=== PATIENT | male | born 1950 | race Caucasian/White ===

== ENCOUNTER 2017-12-25 14:00 | Emergency (ER) | payer MEDICARE, OTHER ==
[2017-12-25 14:01] VITALS: BMI 28.1
[2017-12-25 14:15] VITALS: O2SAT 100
[2017-12-25] MEDS ORDERED: DiphenhydrAMINE 50 mg/ml Inj IVP STA (14:54)
[2017-12-25] MEDS ORDERED: DiphenhydrAMINE 50 mg/ml Inj ONE (15:16)
--- NOTE | 2017-12-25 15:22 | ED PDOC ---
HPI: Skin/Bite Injury Time Seen by Provider: 12/25/17 14:00 Chief Complaint (Nursing): Abnormal Skin Integrity Chief Complaint (Provider): Rash History Per: Patient History/Exam Limitations: no limitations Onset/Duration Of Symptoms: Days (x1) Current Symptoms Are (Timing): Still Present Location Of Injury: Right: Hand, Left: Hand, Anterior: Chest, Face, Posterior: Back, Neck Quality Of Symptoms: Itching Additional Complaint(s): Dakota Patterson is a 67 year old male, with no significant past medical history, who presents to the emergency department complaining of a diffused itchy rash and swollen lips onset for x1 day. Rash is most prominently on the back of the neck , lower back, hands, face, and chest. Patient denies new medications, lotions or detergents. No known allergies. He denies any fever, chills, vomiting or other medical complaints. PMD: Tristen Love Past Medical History Reviewed: Historical Data, Nursing Documentation, Vital Signs Vital Signs: Last Vital Signs Temp 98.3 F 12/25/17 18:51 Pulse 85 12/25/17 18:51 Resp 18 12/25/17 18:51 BP 132/74 12/25/17 18:51 Pulse Ox 100 12/25/17 19:06 - Medical History PMH: Arthritis, Benign Prostatic Hyperplasia, HTN, Hypercholesterolemia Denies: Chronic Kidney Disease - Surgical History Surgical History: No Surg Hx - Family History Family History: States: Unknown Family Hx - Social History Current smoker - smoking cessation education provided: No Alcohol: None Drugs: Denies - Immunization History Hx Tetanus Toxoid Vaccination: No Hx Influenza Vaccination: No Hx Pneumococcal Vaccination: No - Home Medications Home Medications: Ambulatory Orders Medication Instructions Recorded Allopurinol [Zyloprim] 300 mg PO DAILY 11/15/13 Celecoxib [Celebrex] 200 mg PO DAILY 11/15/13 Metoprolol Tartrate 50 mg PO DAILY 11/15/13 Tamsulosin [Flomax] 1 cap PO DAILY 11/15/13 Amlodipine/Atorvastatin 1 tab PO DAILY 07/02/16 [Amlodipine Besylate/Atorvastatin Calcium 10 M] Finasteride [Proscar] 5 mg PO DAILY 07/02/16 Latanoprost 0.005% Opht [Xalatan 1 % EACHEYE DAILY 07/02/16 Opht] Triamterene/Hydrochlorothiazid 1 tab PO DAILY 07/02/16 [Triamterene-Hydrochlorothiazide 25 mg-37.5 mg] DiphenhydrAMINE [Benadryl] 25 mg PO Q6H PRN #10 cap 12/25/17 Famotidine [Pepcid] 20 mg PO BID #10 tab 12/25/17 predniSONE [Prednisone] 40 mg PO DAILY #8 tab 12/25/17 - Allergies Allergies/Adverse Reactions: Allergies Allergy/AdvReac Type Severity Reaction Status Date / Time No Known Allergies Allergy Verified 12/25/17 14:11 Review of Systems ROS Statement: Except As Marked, All Systems Reviewed And Found Negative Constitutional: Negative for: Fever, Chills ENT: Positive for: Mouth Swelling (swollen lips. ) Gastrointestinal: Negative for: Vomiting Skin: Positive for: Rash (itchy rash to posterior neck, lower back, hands, face and chest. ) Physical Exam - Reviewed Nursing Documentation Reviewed: Yes Vital Signs Reviewed: Yes - Physical Exam Appears: Positive for: Non-toxic, No Acute Distress Head Exam: Positive for: ATRAUMATIC, NORMAL INSPECTION, NORMOCEPHALIC Skin: Positive for: Normal Color, Warm, Dry, Rash (diffused urticaria ) Eye Exam: Positive for: Normal appearance, EOMI, PERRL ENT: Positive for: Other (lips swollen but oropharynx is clear. No angioedema) Neck: Positive for: Painless ROM, Supple Cardiovascular/Chest: Positive for: Regular Rate, Rhythm. Negative for: Murmur Respiratory: Positive for: Normal Breath Sounds (clear b/l). Negative for: Respiratory Distress Gastrointestinal/Abdominal: Positive for: Normal Exam, Soft. Negative for: Tenderness, Guarding, Rebound Back: Positive for: Normal Inspection. Negative for: L CVA Tenderness, R CVA Tenderness, Vertebral Tenderness Extremity: Positive for: Normal ROM. Negative for: Tenderness, Deformity, Swelling Neurologic/Psych: Positive for: Alert, Oriented - ECG O2 Sat by Pulse Oximetry: 100 (RA) Pulse Ox Interpretation: Normal Medical Decision Making Medical Decision Making: Initial Impression: Allergic reaction, unknown trigger. no respiratory symptoms at this time. Initial Plan: --Benadryl 50 mg IVP --Pepcid 20 mg IVP --SOLU-medrol 125 mg IVP --Reevaluation Time: 18:42 Upon provider reevaluation patient is feeling improved and swelling has reduced. pt feels fine, no dyspea or tachypnea. Patient will be discharged with Rx for Prednisone, Pepcid, and Benadryl. Counseling was provided and all questions were answered regarding diagnosis and need for follow up with [employer]. Patient was instructed very clearly to return to the ED immediately if any symptoms recur. There is agreement to discharge plan. Scribe Attestation: Documented by Fei Buck and Raj Stovall, acting as scribes for Pauly Sloan MD Provider Scribe Attestation: All medical record entries made by the Scribe were at my direction and personally dictated by me. I have reviewed the chart and agree that the record accurately reflects my personal performance of the history, physical exam, medical decision making, and the department course for this patient. I have also personally directed, reviewed, and agree with the discharge instructions and disposition. Disposition - Clinical Impression Clinical Impression: Allergic reaction - Patient ED Disposition Is Patient to be Admitted: No Counseled Patient/Family Regarding: Diagnosis, Need For Followup, Rx Given - Disposition Disposition: Routine/Home Disposition Time: 18:00 Condition: IMPROVED Additional Instructions: follow up with the ore miner Dr Bowers [phone] return to the ED with any worsening or concerning symptoms Prescriptions: DiphenhydrAMINE [Benadryl] 25 mg PO Q6H PRN #10 cap PRN Reason: Rash Famotidine [Pepcid] 20 mg PO BID #10 tab predniSONE [Prednisone] 40 mg PO DAILY #8 tab Forms: [employer] (Armenian)
[2017-12-25 18:52] VITALS: BP 132/74; PULSE 85; RESP 18; TEMP 98.3
== END 2017-12-25 18:53 | disposition home or self-care (01) ==
LOC: H.ER 14:00
DX: T78.40XA Allergy, unspecified, initial encounter (principal); E78.00 Pure hypercholesterolemia, unspecified; I10 Essential (primary) hypertension; N40.0 Benign prostatic hyperplasia without lower urinary tract symptoms
CPT/HCPCS: 96374; 96375; 99282; J1200; J2930

== ENCOUNTER 2018-11-11 15:35 | Emergency (ER) | payer OTHER ==
[2018-11-11 15:35] VITALS: BMI 28.1
[2018-11-11 15:46] VITALS: BP 148/83; PULSE 56; RESP 20; TEMP 97.9; O2SAT 97
--- NOTE | 2018-11-11 16:49 | ED PDOC ---
Upper Extremity Pain/Injury Time Seen by Provider: 11/11/18 16:41 Chief Complaint (Nursing): Upper Extremity Problem/Injury Chief Complaint (Provider): Upper Extremity Problem/Injury History Per: Patient History/Exam Limitations: no limitations Onset/Duration Of Symptoms: Hrs Current Symptoms Are (Timing): Still Present Additional Complaint(s): Patient is a 68 y/o male with a PMHx of HTN, arthritis, and benign prostatic hyperplasia who presents to the ED for evaluation of right shoulder pain, onset earlier today. Patient claims he was filling a pot with water when he felt a sharp pain in his right shoulder. Patient reports the pain hurts sometimes when he moves his arm, however, one time he was sitting still when he started experiencing the pain again. 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 PCP: Dr. Tristen Love Past Medical History Reviewed: Historical Data, Nursing Documentation, Vital Signs Vital Signs: Last Vital Signs Temp 97.9 F 11/11/18 15:42 Pulse 56 L 11/11/18 15:42 Resp 20 11/11/18 15:42 BP 148/83 11/11/18 15:42 Pulse Ox 97 11/11/18 15:42 - Medical History PMH: Arthritis, Benign Prostatic Hyperplasia, HTN Denies: Hypercholesterolemia, Chronic Kidney Disease - Surgical History Surgical History: No Surg Hx - Family History Family History: States: Unknown Family Hx - Immunization History Hx Tetanus Toxoid Vaccination: No Hx Influenza Vaccination: No Hx Pneumococcal Vaccination: No - Home Medications Home Medications: Ambulatory Orders Medication Instructions Recorded Allopurinol [Zyloprim] 300 mg PO DAILY 11/15/13 Celecoxib [Celebrex] 200 mg PO DAILY 11/15/13 Metoprolol Tartrate 50 mg PO DAILY 11/15/13 Tamsulosin [Flomax] 1 cap PO DAILY 11/15/13 Amlodipine/Atorvastatin 1 tab PO DAILY 07/02/16 [Amlodipine Besylate/Atorvastatin Calcium 10 M] Finasteride [Proscar] 5 mg PO DAILY 07/02/16 Latanoprost 0.005% Opht [Xalatan 1 % EACHEYE DAILY 07/02/16 Opht] Triamterene/Hydrochlorothiazid 1 tab PO DAILY 07/02/16 [Triamterene-Hydrochlorothiazide 25 mg-37.5 mg] DiphenhydrAMINE [Benadryl] 25 mg PO Q6H PRN #10 cap 12/25/17 Famotidine [Pepcid] 20 mg PO BID #10 tab 12/25/17 predniSONE [Prednisone] 40 mg PO DAILY #8 tab 12/25/17 Diclofenac Potassium 50 mg PO BID #20 tablet 11/11/18 - Allergies Allergies/Adverse Reactions: Allergies Allergy/AdvReac Type Severity Reaction Status Date / Time No Known Allergies Allergy Verified 12/25/17 14:11 Review of Systems ROS Statement: Except As Marked, All Systems Reviewed And Found Negative Musculoskeletal: Positive for: Shoulder Pain (Right) Physical Exam - Reviewed Nursing Documentation Reviewed: Yes Vital Signs Reviewed: Yes - Physical Exam Appears: Positive for: No Acute Distress Head Exam: Positive for: ATRAUMATIC, NORMAL INSPECTION, NORMOCEPHALIC Skin: Positive for: Normal Color Eye Exam: Positive for: Normal appearance Neck: Positive for: Normal Cardiovascular/Chest: Positive for: Regular Rate, Rhythm Respiratory: Positive for: Normal Breath Sounds Gastrointestinal/Abdominal: Positive for: Normal Exam Extremity: Positive for: Other (Scarf Sign, Servin Sign, Empty Can Sign). Negative for: Normal ROM (Limited ROM in Right Shoulder; Nears Sign) - ECG O2 Sat by Pulse Oximetry: 97 (RA) Pulse Ox Interpretation: Normal Medical Decision Making Medical Decision Making: Time: 1646 Plan: Shoulder Right [Rad] Date of service: 11/11/2018 PROCEDURE: Radiographs of the Right Shoulder HISTORY: r/o calcific tendonosis COMPARISON: No prior. FINDINGS: BONES: Bone alignment and mineralization are normal. There is no acute displaced fracture or bone destruction. JOINTS: Normal. Glenohumeral and acromioclavicular joints preserved. No osteoarthritis. SOFT TISSUES: Normal. OTHER FINDINGS: None. IMPRESSION: No acute findings. No radiographic evidence for calcific tendinosis. Scribe Attestation: Documented by Hayden Silva, acting as a scribe for Bart GERMAN. Provider Scribe Attestation: All medical record entries made by the Scribe were at my direction and personally dictated by me. I have reviewed the chart and agree that the record accurately reflects my personal performance of the history, physical exam, medical decision making, and the department course for this patient. I have also personally directed, reviewed, and agree with the discharge instructions and disposition. Disposition - Clinical Impression Clinical Impression: Shoulder pain - Patient ED Disposition Is Patient to be Admitted: No (patrick) Counseled Patient/Family Regarding: Studies Performed, Diagnosis, Need For Followup - Disposition Referrals: Tristen Love MD [Family Provider] - Disposition: Routine/Home Disposition Time: 17:57 Condition: STABLE Prescriptions: Diclofenac Potassium 50 mg PO BID #20 tablet Instructions: Shoulder Pain (DC) Forms: [employer] (Estonian)
--- NOTE | 2018-11-11 17:30 | RAD ---
Date of service: 11/11/2018 PROCEDURE: Radiographs of the Right Shoulder HISTORY: r/o calcific tendonosis COMPARISON: No prior. FINDINGS: BONES: Bone alignment and mineralization are normal. There is no acute displaced fracture or bone destruction. JOINTS: Normal. Glenohumeral and acromioclavicular joints preserved. No osteoarthritis. SOFT TISSUES: Normal. OTHER FINDINGS: None. IMPRESSION: No acute findings. No radiographic evidence for calcific tendinosis.
== END 2018-11-11 18:08 | disposition home or self-care (01) ==
LOC: H.ER 15:35
DX: M25.511 Pain in right shoulder (principal)

== ENCOUNTER 2019-01-31 22:47 | Inpatient (IN) | payer MEDICARE, OTHER ==
[2019-01-31 22:47] VITALS: BMI 28.1
[2019-01-31] MEDS ORDERED: Sodium Chloride 0.9% 1,000 ML IV STA (23:19)
--- NOTE | 2019-01-31 23:44 | ED PDOC ---
HPI: Abdomen Time Seen by Provider: 01/31/19 22:59 Chief Complaint (Nursing): Syncope Chief Complaint (Provider): Abnormal Stool History Per: Patient History/Exam Limitations: no limitations Onset/Duration Of Symptoms: Hrs (12) Additional Complaint(s): 68 y/o with history of HTN and arthritis presents to the ED with black stool with no ferny blood and lightheadedness, onset 12 hours ago. Patient reports he was feeling lightheadedness after his last bowel movement just prior to arrival. Patient states he was feeling extremely lightheaded and diaphoretic and after his bowel movement he fell to the ground. Patient doesn't believe that he blacked out but is unsure. Patient's came in to help him up and called the ambulance. Patient denies any chest pain or shortness of breath but continues to feel extremely light headed. Patient reports he has been taking Tylenol and Aleve since [place] [facility] [place] Patient is not taking any anticoagulants and denies any bleeding elsewhere. Patient reports he has had a history of a bleeding gastric ulcer when he was a teenager and at that time had to have a transfusion but reports that the ulcer resolved so he no lo nger had to take medications. Patient doesn't remember how he presented at the time because it was so long ago. PMD: Tristen Love Past Medical History Reviewed: Historical Data, Nursing Documentation, Vital Signs Vital Signs: Last Vital Signs Temp 97.6 F 01/31/19 22:49 Pulse 130 H 01/31/19 22:49 Resp 18 01/31/19 22:49 BP 101/67 01/31/19 22:49 Pulse Ox 99 01/31/19 22:49 - Medical History PMH: Arthritis, Benign Prostatic Hyperplasia, HTN Denies: Hypercholesterolemia, Chronic Kidney Disease - Surgical History Other surgeries: Left knee replacement - Family History Family History: States: Unknown Family Hx, Hypertension - Social History Current smoker - smoking cessation education provided: No Alcohol: Occasional - Immunization History Hx Tetanus Toxoid Vaccination: No Hx Influenza Vaccination: No Hx Pneumococcal Vaccination: No - Home Medications Home Medications: Ambulatory Orders Medication Instructions Recorded Allopurinol [Zyloprim] 300 mg PO DAILY 11/15/13 Celecoxib [Celebrex] 200 mg PO DAILY 11/15/13 Metoprolol Tartrate 50 mg PO DAILY 11/15/13 Tamsulosin [Flomax] 1 cap PO DAILY 11/15/13 Amlodipine/Atorvastatin 1 tab PO DAILY 07/02/16 [Amlodipine Besylate/Atorvastatin Calcium 10 M] Finasteride [Proscar] 5 mg PO DAILY 07/02/16 Latanoprost 0.005% Opht [Xalatan 1 % EACHEYE DAILY 07/02/16 Opht] Triamterene/Hydrochlorothiazid 1 tab PO DAILY 07/02/16 [Triamterene-Hydrochlorothiazide 25 mg-37.5 mg] DiphenhydrAMINE [Benadryl] 25 mg PO Q6H PRN #10 cap 12/25/17 Famotidine [Pepcid] 20 mg PO BID #10 tab 12/25/17 predniSONE [Prednisone] 40 mg PO DAILY #8 tab 12/25/17 Diclofenac Potassium 50 mg PO BID #20 tablet 11/11/18 - Allergies Allergies/Adverse Reactions: Allergies Allergy/AdvReac Type Severity Reaction Status Date / Time No Known Allergies Allergy Verified 12/25/17 14:11 Review of Systems ROS Statement: Except As Marked, All Systems Reviewed And Found Negative (as per HPI otherwise negative) Cardiovascular: Negative for: Chest Pain Respiratory: Negative for: Shortness of Breath Gastrointestinal: Positive for: Melena Neurological: Positive for: Dizziness (lightheaded) Physical Exam - Reviewed Nursing Documentation Reviewed: Yes Vital Signs Reviewed: Yes - Physical Exam Appears: Positive for: Non-toxic, In Acute Distress (very tired) Head Exam: Positive for: ATRAUMATIC, NORMOCEPHALIC Skin: Positive for: Warm, Dry, Pallor Eye Exam: Positive for: EOMI, PERRL, Other (pale conjunctivae) ENT: Positive for: Normal ENT Inspection Neck: Positive for: Painless ROM, Supple Cardiovascular/Chest: Positive for: Tachycardia (regular rhythm). Negative for: Murmur Respiratory: Positive for: Normal Breath Sounds Gastrointestinal/Abdominal: Positive for: Normal Exam, Soft. Negative for: Tenderness Back: Positive for: Normal Inspection. Negative for: Decreased ROM Rectal: Positive for: Black Stool (black and maroon colored stool; melena). Negative for: Normal Exam (SHANTA Carvalho present on exam) Extremity: Positive for: Other (left knee: srugical wounds are dressed clean, dry and intact; left lower leg: faint ecchymosis throught anterior tibial area) Lymphatic: Negative for: Adenopathy Neurological/Psych: Positive for: Awake, Alert, Normal Tone, Oriented (x3). Negative for: Motor/Sensory Deficits - Laboratory Results Result Diagrams: 01/31/19 23:46 01/31/19 23:46 - ECG ECG: Positive for: Interpreted By Ak ECG Rhythm: Positive for: Normal QRS, Normal ST Segment, Sinus Tachycardia O2 Sat by Pulse Oximetry: 99 (RA) Pulse Ox Interpretation: Normal - Radiology X-Ray: Interpreted by Me X-Ray Interpretation: No Acute Disease Medical Decision Making Medical Decision Making: Time: 23:06 Initial Impression: GI Bleed Patient demonstrates multiple clinical signs of anemia. Transfusion ordered immediately with aggressive management of possible bleeding ulcer. Patient will be hospitalized pending ER workup. Initial Plan: * Labs * CXR * IV Fluids * Protonix 00:05 Discussed with patient risks and benefits of transfusion. 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 However, he has never been checked for hepatitis since then. Hepatitis panel ordered to confirm status prior to transfusion. 00:11 Labs demonstrate hemoglobin of 6.3 and BUN of 60 which is consistent with large blood loss from GI bleed. Patient case discussed with Dr. Palacios, hospitalist, for medical servic and ICU placement. [id number] DW Dr Saturnino MCKEON who agrees with plan of care. Will eval pt in hospital. Scribe Attestation: Documented by Manish Srivastava, acting as a scribe Ishmael Celeste MD Provider Scribe Attestation: All medical record entries made by the Scribe were at my direction and personally dictated by me. I have reviewed the chart and agree that the record accurately reflects my personal performance of the history, physical exam, medical decision making, and the department course for this patient. I have also personally directed, reviewed, and agree with the discharge instructions and disposition Disposition - Clinical Impression Clinical Impression: Syncope, GI bleed, Anemia - Disposition Disposition Time: 00:00 Condition: CRITICAL - Pt Status Changed To: Hospital Disposition Of: Inpatient - Admit Certification Admit to Inpatient:: After my assessment, the patient will require hospitalization for at least two midnights. This is because of the severity of symptoms shown, intensity of services needed, and/or the medical risk in this patient being treated as an outpatient. - POA Present On Arrival: None
[2019-01-31 23:46] LABS: VENOUS BLOOD GAS BASE EXCESS -3.6 mmol/L (0.0-2.0); VENOUS BLOOD GAS PCO2 34 mmHg (40-60); VENOUS BLOOD GAS PO2 12 mm/Hg (30-55); VENOUS BLOOD PH 7.39 (7.32-7.43)
[2019-01-31 23:51] LABS: BASO % 0.1 % (0.0-2.0); EOS % 0.1 % (0.0-4.0); LYMPH # 1.1 K/uL (1.0-4.3); LYMPH % 6.6 % (20.0-40.0); MEAN CORPUSCULAR HEMOGLOBIN 32.2 pg (27.0-31.0); MEAN CORPUSCULAR HGB CONC 32.5 g/dL (33.0-37.0); MEAN PLATELET VOLUME 7.5 fl (7.2-11.7); MONO % 5.7 % (0.0-10.0); NEUT % 87.5 % (50.0-75.0); PLATELET COUNT 466 K/uL (130-400); RBC 1.95 Mil/uL (4.40-5.90); RED CELL DISTRIBUTION WIDTH 13.8 % (11.5-14.5); WHITE BLOOD COUNT 17.1 K/uL (4.8-10.8)
[2019-01-31] MEDS: Pantoprazole 40 MG in Sodium Chloride 0.9% 100 ML IVPB STA (23:53)
[2019-01-31 23:55] LABS: INR 1.6; PROTHROMBIN TIME 18.6 Seconds (9.8-13.1)
[2019-01-31 23:57] LABS: PARTIAL THROMBOPLASTIN TIME 35.2 Seconds (25.6-37.1)
[2019-01-31 23:59] LABS: HEMOGLOBIN 6.3 g/dL (12.0-18.0)
[2019-02-01] LABS: ALBUMIN 3.2 g/dL (3.5-5.0); ALT/SGPT 30 U/L (21-72); AST/SGOT 22 U/L (17-59); BLOOD UREA NITROGEN 60 mg/dl (9-20); CALCIUM 9.2 mg/dL (8.4-10.2); GFR NON-AFRICAN AMERICAN > 60; LIPASE 326 U/L (23-300)
[2019-02-01 00:54] LABS: LYMPHOCYTE 9 % (20-50); MONOCYTE 4 % (0-10); NEUTROPHIL 87 % (42-75); PLATELET ESTIMATE SLIGHTLY INCREASED (NORMAL); TOTAL CELLS COUNTED 100
[2019-02-01 00:56] LABS: ANISOCYTOSIS SLIGHT; LARGE PLATELETS PRESENT; OVALOCYTES MODERATE; POIKILOCYTOSIS SLIGHT
--- NOTE | 2019-02-01 01:03 | CP.PCM.HP ---
History of Present Illness - History of Present Illness History of Present Illness: PMD: Tristen Love Chief Complaint: Bloody stool/Near syncope The patient was seen and examined in the ED, no family member present HPI: The hx was obtained from the patient and after review of the radiological, laboratory and the medical records. This is a 68 years old male who comes with a 12 hours hx of black blood. Prior to calling the EMS, he developed lightheadedness, dizziness and diaphoresis while sitting on the toilet seat, then falling to the floor on standing. He referred no headache nor loss of consciousness. He has hx of Hepatitis C ?, Bleeding gastric ulcer as a teenager and Left [place] [facility] [place]. He was not placed on anticoagulant but was taking Tylenol and Aleve for pain. No Chest pain, palpitation nor SOB. 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 absent: Blurred Vision, Diplopia Ears: absent: Decreased Hearing, Ear Discharge, Ear Pain, Tinnitus Nose/Mouth/Throat: absent: Epistaxis, Nasal Congestion, Nasal Discharge, Sinus Pain, Sinus Pressure - Cardiovascular Cardiovascular: Diaphoresis, Lightheadedness. absent: Chest Pain, Dyspnea, Edema, Palpitations - Respiratory Respiratory: absent: Cough, Dyspnea, Wheezing, Stridor, Chest Congestion - Gastrointestinal Gastrointestinal: absent: Abdominal Pain, Constipation, Diarrhea, Nausea, Vomiting - Genitourinary Genitourinary: absent: Dysuria, Flank Pain, Urinary Frequency - Musculoskeletal Musculoskeletal: absent: Back Pain Additional comments: left knee pain - Integumentary Integumentary: absent: Pruritus, Rash, Skin Ulcer, Sores, Striae, Swelling - Neurological Neurological: Dizziness. absent: Confusion, Focal Weakness, Headaches, Loss of Vision, Weakness - Psychiatric Psychiatric: absent: Anxiety, Depression, Panic Attacks - Endocrine Endocrine: absent: Palpitations, Polydipsia, Polyphagia, Polyuria - Hematologic/Lymphatic Hematologic: absent: Easy Bleeding, Easy Bruising Past Patient History - Past Medical History & Family History Past Medical History?: Yes - Past Social History Smoking Status: Former Smoker Chewing Tobacco Use: No Cigar Use: No Alcohol: Occasional Drugs: Denies, Inhalants Home Situation {Lives}: With Family - CARDIAC Hx Hypercholesterolemia: No Hx Hypertension: Yes - PULMONARY Hx Respiratory Disorders: No - NEUROLOGICAL Hx Neurological Disorder: No - HEENT Hx HEENT Problems: Yes Hx Cataracts: Yes (LEFT EYE) Hx Glaucoma: Yes - RENAL Hx Chronic Kidney Disease: Yes Hx Kidney Stones: Yes (1980s) - ENDOCRINE/METABOLIC Hx Endocrine Disorders: No - HEMATOLOGICAL/ONCOLOGICAL Hx Blood Disorders: Yes Hx Blood Transfusions: Yes Hx Blood Transfusion Reaction: No Hx Hepatitis C: Yes (never confirmed) - INTEGUMENTARY Hx Dermatological Problems: No - MUSCULOSKELETAL/RHEUMATOLOGICAL Hx Arthritis: Yes - GASTROINTESTINAL Hx Gastrointestinal Disorders: Yes Hx Ulcer: Yes (Bleeding gastric ulcer 1960s) - GENITOURINARY/GYNECOLOGICAL Hx Genitourinary Disorders: Yes Hx Prostate Problems: Yes - PSYCHIATRIC Hx Emotional Abuse: No Hx Physical Abuse: No Hx Substance Use: No - SURGICAL HISTORY Hx Surgeries: Yes Hx Cataract Extraction: Yes (LEFT EYE) Hx Orthopedic Surgery: Yes (Left TKR) Other/Comment: Cystoscopy - ANESTHESIA Hx Anesthesia: Yes Hx Anesthesia Reactions: No Hx Malignant Hyperthermia: No Meds Allergies/Adverse Reactions: Allergies Allergy/AdvReac Type Severity Reaction Status Date / Time No Known Allergies Allergy Verified 12/25/17 14:11 Physical Exam - Constitutional Appears: No Acute Distress - Head Exam Head Exam: ATRAUMATIC, NORMAL INSPECTION, NORMOCEPHALIC - Eye Exam Eye Exam: EOMI, Normal appearance Pupil Exam: NORMAL ACCOMODATION, PERRL - ENT Exam ENT Exam: Mucous Membranes Moist, Normal Exam, Normal External Ear Exam - Neck Exam Neck exam: Positive for: Full Rom, Normal Inspection. Negative for: Lymphadenopathy, Tenderness - Respiratory Exam Respiratory Exam: Clear to Auscultation Bilateral. absent: Rales, Rhonchi, Wheezes, Stridor - Cardiovascular Exam Cardiovascular Exam: Tachycardia, REGULAR RHYTHM, +S1, +S2 - GI/Abdominal Exam GI & Abdominal Exam: Normal Bowel Sounds, Soft. absent: Mass, Organomegaly, Tenderness - Rectal Exam Rectal Exam: Deferred - Extremities Exam Extremities exam: Positive for: normal inspection. Negative for: calf tenderness, pedal edema Additional comments: Left knee with surgical scar with cyril in place. - Back Exam Back exam: NORMAL INSPECTION. absent: CVA tenderness (L), CVA tenderness (R) - Neurological Exam Neurological exam: Alert, CN II-XII Intact, Oriented x3, Reflexes Normal - Psychiatric Exam Psychiatric exam: Normal Affect, Normal Mood - Skin Skin Exam: Dry, Intact, Normal Color, Warm Results - Vital Signs Recent Vital Signs: Last Vital Signs Temp 97.6 F 01/31/19 22:49 Pulse 130 H 01/31/19 22:49 Resp 18 01/31/19 22:49 BP 101/67 01/31/19 22:49 Pulse Ox 99 02/01/19 01:00 - Labs Result Diagrams: 01/31/19 23:46 01/31/19 23:46 Labs: Laboratory Results - last 24 hr 01/31/19 01/31/19 01/31/19 23:35 23:43 23:46 WBC 17.1 H D RBC 1.95 L Hgb 6.3 L* Hct 19.3 L MCV 99.0 H MCH 32.2 H MCHC 32.5 L RDW 13.8 Plt Count 466 H D MPV 7.5 Neut % (Auto) 87.5 H Lymph % (Auto) 6.6 L [place] % (Auto) 5.7 Eos % (Auto) 0.1 Baso % (Auto) 0.1 Neut # (Auto) 15.0 H Lymph # (Auto) 1.1 [place] # (Auto) 1.0 H Eos # (Auto) 0.0 Baso # (Auto) 0.0 Neutrophils % (Manual) 87 H Lymphocytes % (Manual) 9 L Monocytes % (Manual) 4 Platelet Estimate Slightly increased H Large Platelets Present Poikilocytosis (manual Slight Anisocytosis (manual) Slight Macrocytosis (manual) Slight Ovalocytes Moderate PT INR APTT pO2 12 L VBG pH 7.39 VBG pCO2 34 L VBG HCO3 19.8 VBG Total CO2 21.6 L VBG O2 Sat (Calc) 15.9 L VBG Base Excess -3.6 L VBG Potassium 4.6 Sodium 139.0 Chloride 109.0 H Glucose 168 H Lactate 4.5 H* FiO2 21.0 Crit Value Called To Dr charanjit mead Crit Value Called By Lalo Crit Value Read Back Y Blood Gas Notified Time 2346 Potassium Carbon Dioxide Anion Gap BUN Creatinine Est GFR ( Amer) Est GFR (Non-Af Amer) Random Glucose Calcium Phosphorus Magnesium Total Bilirubin AST ALT Alkaline Phosphatase Troponin I Total Protein Albumin Globulin Albumin/Globulin Ratio Lipase Venous Blood Potassium 4.6 Stool Occult Blood Blood Type O POSITIVE Antibody Screen Negative Crossmatch See Detail BBK History Checked No verified bt 01/31/19 01/31/19 01/31/19 23:46 23:46 23:46 WBC RBC Hgb Hct MCV MCH MCHC RDW Plt Count MPV Neut % (Auto) Lymph % (Auto) [place] % (Auto) Eos % (Auto) Baso % (Auto) Neut # (Auto) Lymph # (Auto) [place] # (Auto) Eos # (Auto) Baso # (Auto) Neutrophils % (Manual) Lymphocytes % (Manual) Monocytes % (Manual) Platelet Estimate Large Platelets Poikilocytosis (manual Anisocytosis (manual) Macrocytosis (manual) Ovalocytes PT 18.6 H INR 1.6 APTT 35.2 pO2 VBG pH VBG pCO2 VBG HCO3 VBG Total CO2 VBG O2 Sat (Calc) VBG Base Excess VBG Potassium Sodium 139 Chloride 106 Glucose Lactate FiO2 Crit Value Called To Crit Value Called By Crit Value Read Back Blood Gas Notified Time Potassium 4.3 Carbon Dioxide 19 L Anion Gap 18 BUN 60 H Creatinine 1.2 Est GFR ( Amer) > 60 Est GFR (Non-Af Amer) > 60 Random Glucose 160 H Calcium 9.2 Phosphorus 3.8 Magnesium 2.0 Total Bilirubin 0.4 AST 22 ALT 30 Alkaline Phosphatase 81 Troponin I < 0.0120 Total Protein 6.2 L Albumin 3.2 L Globulin 3.1 Albumin/Globulin Ratio 1.0 Lipase 326 H Venous Blood Potassium Stool Occult Blood Positive H Blood Type Antibody Screen Crossmatch BBK History Checked - Impressions Impression: Sinus Tachycardia 124/min - Imaging and Cardiology Chest x-ray Status: Image reviewed by me Additional comment: No infiltrates Assessment & Plan - Assessment and Plan (Free Text) Assessment: #. Presyncope #. GI Bleed #. Blood loss Anemia #. Leukocytosis #. Azotemia #. Hyperglycemia #. BPH #. Hepatitis C Plan: 68 years old male who comes with a 12 hours hx of black stool. with the last bowel movement prior to coming to [facility], he developed lightheadedness, dizziness and diaphoresis while sitting on the toilet seat, then falling to the floor on standing. #. Presyncope secondary to blood loss and orthostatic hypotension. - Admit to ICU - Cardiac monitoring - IV Fluids #. GI Bleed most probably upper - Consult Gastroenterology Dr Rojas - Protonix continuous drip - Follow H&H #. Blood loss Anemia - Blood transfusion - Follow H&H #. Neutrophylic Leukocytosis. Probably reactive - Follow CBC #. Azotemia with increased BUN most probably due to upper GI bleed - IVFluids - Follow Renal labs #. Hyperglycemia - HbA1c #. BPH - Restart Flomax when oral diet is started - Arthritis s/p Left Total Knee replacement - Wound care nurse - Patient has appointment with Orthopedist on 02/04/19 #. Hepatitis C. Patient cannot remember a positive lab result - Hepatitis profile #. DVT Prophylaxis with SCD #. Code Status Full - Date & Time Date: 02/01/19 Time: 01:03
[2019-02-01] MEDS ORDERED: Sodium Chloride 0.9% 1,000 ML IV SCH (01:15)
[2019-02-01] MEDS: Pantoprazole 40 MG in Sodium Chloride 0.9% 100 ML IVPB STA (01:39)
[2019-02-01] MEDS ORDERED: Promethazine/Cod 6.25mg-10mg/5ml Syr UD PO STA (04:51)
--- NOTE | 2019-02-01 08:56 | RAD ---
Date of service: 01/31/2019 HISTORY: syncope COMPARISON: No prior. TECHNIQUE: 1 view obtained. FINDINGS: LUNGS: No active pulmonary disease. PLEURA: No significant pleural effusion identified, no pneumothorax apparent. CARDIOVASCULAR: No aortic atherosclerotic calcification present. Normal cardiac size. No pulmonary vascular congestion. OSSEOUS STRUCTURES: No significant abnormalities. VISUALIZED UPPER ABDOMEN: Normal. OTHER FINDINGS: None. IMPRESSION: No acute cardiopulmonary disease appreciated.
[2019-02-01] MEDS: Pantoprazole 40 MG in Sodium Chloride 0.9% 100 ML IVPB SCH ×3 (09:00→21:19)
--- NOTE | 2019-02-01 09:07 | CARD ---
APPROVED REPORT Date of service: 01/31/2019 EKG Measurement Heart [id number] <Conclusion> Sinus tachycardia Otherwise normal ECG
--- NOTE | 2019-02-01 09:29 | CP.PCM.CON ---
<Dimas Tolliver - Last Filed: 02/01/19 10:23> History of Present Illness - History of Present Illness History of Present Illness: GI CONSULT NOTE FOR DR. ROJAS Reason: GI bleed 68M presents to the hospital for blood per rectum and near syncope. Patient states blood per rectum began yesterday. He describes it has jet black stools in a diarrhea form. He states he had blood per rectum in the past before in the 60s. At that time he was diagnosed with gastric ulcers which he has not had issues with since. Patient admits to having nausea but no vomiting at the time. Denies abdominal pain, chest pain, shortness of breath. Patient denies any recent weight loss. He does have a history of untested blood transfusion from decades ago. PMH: Arthritis, Gout, Kidney stone, HTN, Shingles, Gastric ulcer, Anal fissure/hemorrhoid PSH: Left total knee replacement (2weeks ago), Cataracts surgery Allergies: NKDA Past Patient History - Past Medical History & Family History Past Medical History?: Yes - Past Social History Smoking Status: Former Smoker Chewing Tobacco Use: No Cigar Use: No Alcohol: Occasional Drugs: Denies, Inhalants Home Situation {Lives}: With Family - CARDIAC Hx Hypercholesterolemia: No Hx Hypertension: Yes - PULMONARY Hx Respiratory Disorders: No - NEUROLOGICAL Hx Neurological Disorder: No - HEENT Hx HEENT Problems: Yes Hx Cataracts: Yes (LEFT EYE) Hx Glaucoma: Yes - RENAL Hx Chronic Kidney Disease: Yes Hx Kidney Stones: Yes (1980s) - ENDOCRINE/METABOLIC Hx Endocrine Disorders: No - HEMATOLOGICAL/ONCOLOGICAL Hx Blood Disorders: Yes Hx Blood Transfusions: Yes Hx Blood Transfusion Reaction: No Hx Hepatitis C: Yes (never confirmed) - INTEGUMENTARY Hx Dermatological Problems: No - MUSCULOSKELETAL/RHEUMATOLOGICAL Hx Arthritis: Yes - GASTROINTESTINAL Hx Gastrointestinal Disorders: Yes Hx Ulcer: Yes (Bleeding gastric ulcer ) - GENITOURINARY/GYNECOLOGICAL Hx Genitourinary Disorders: Yes Hx Prostate Problems: Yes - PSYCHIATRIC Hx Emotional Abuse: No Hx Physical Abuse: No Hx Substance Use: No - SURGICAL HISTORY Hx Surgeries: Yes Hx Cataract Extraction: Yes (LEFT EYE) Hx Orthopedic Surgery: Yes (Left TKR) Other/Comment: Cystoscopy - ANESTHESIA Hx Anesthesia: Yes Hx Anesthesia Reactions: No Hx Malignant Hyperthermia: No Meds Allergies/Adverse Reactions: Allergies Allergy/AdvReac Type Severity Reaction Status Date / Time No Known Allergies Allergy Verified 12/25/17 14:11 - Medications Medications: Current Medications Sodium Chloride (Sodium Chloride 0.9%) 1,000 mls @ 125 mls/hr IV .Q8H [facility] Stop: 02/02/19 01:12 Last Admin: 02/01/19 01:40 Dose: 125 mls/hr Pantoprazole Sodium 40 mg/ (Sodium Chloride) 100 mls @ 20 mls/hr IVPB Q5H [facility] Physical Exam - Constitutional Appears: Non-toxic, No Acute Distress - Eye Exam Eye Exam: EOMI, PERRL - Respiratory Exam Respiratory Exam: Clear to Auscultation Bilateral, NORMAL BREATHING PATTERN - Cardiovascular Exam Cardiovascular Exam: REGULAR RHYTHM, +S1, +S2 - GI/Abdominal Exam GI & Abdominal Exam: Soft. absent: Distended, Firm, Guarding, Rebound, Rigid, Tenderness - Extremities Exam Extremities exam: Negative for: pedal edema, tenderness - Neurological Exam Neurological exam: Alert, Oriented x3 - Psychiatric Exam Psychiatric exam: Normal Affect, Normal Mood - Skin Skin Exam: Dry, Intact, Normal Color, Warm Results - Vital Signs Recent Vital Signs: Last Vital Signs Temp 98.6 F 02/01/19 08:00 Pulse 105 H 02/01/19 08:00 Resp 21 02/01/19 08:00 BP 141/88 02/01/19 08:00 Pulse Ox 100 02/01/19 08:00 - Labs Result Diagrams: 01/31/19 23:46 01/31/19 23:46 Labs: Laboratory Results - last 24 hr 01/31/19 01/31/19 01/31/19 23:35 23:40 23:43 WBC RBC Hgb Hct MCV MCH MCHC RDW Plt Count MPV Neut % (Auto) Lymph % (Auto) [place]ke % (Auto) Eos % (Auto) Baso % (Auto) Neut # (Auto) Lymph # (Auto) [place] # (Auto) Eos # (Auto) Baso # (Auto) Neutrophils % (Manual) Lymphocytes % (Manual) Monocytes % (Manual) Platelet Estimate Large Platelets Poikilocytosis (manual Anisocytosis (manual) Macrocytosis (manual) Ovalocytes PT INR APTT pO2 12 L VBG pH 7.39 VBG pCO2 34 L VBG HCO3 19.8 VBG Total CO2 21.6 L VBG O2 Sat (Calc) 15.9 L VBG Base Excess -3.6 L VBG Potassium 4.6 Sodium 139.0 Chloride 109.0 H Glucose 168 H Lactate 4.5 H* FiO2 21.0 Crit Value Called To Dr charanjit mead Crit Value Called By Lalo Crit Value Read Back Y Blood Gas Notified Time 2346 Potassium Carbon Dioxide Anion Gap BUN Creatinine Est GFR ( Amer) Est GFR (Non-Af Amer) Random Glucose Calcium Phosphorus Magnesium Total Bilirubin AST ALT Alkaline Phosphatase Troponin I Total Protein Albumin Globulin Albumin/Globulin Ratio Lipase Venous Blood Potassium 4.6 Stool Occult Blood Blood Type O POSITIVE Blood Type Confirm O POSITIVE Antibody Screen Negative Crossmatch See Detail BBK History Checked No verified bt 01/31/19 01/31/19 01/31/19 23:46 23:46 23:46 WBC 17.1 H D RBC 1.95 L Hgb 6.3 L* Hct 19.3 L MCV 99.0 H MCH 32.2 H MCHC 32.5 L RDW 13.8 Plt Count 466 H D MPV 7.5 Neut % (Auto) 87.5 H Lymph % (Auto) 6.6 L [place] % (Auto) 5.7 Eos % (Auto) 0.1 Baso % (Auto) 0.1 Neut # (Auto) 15.0 H Lymph # (Auto) 1.1 Starke # (Auto) 1.0 H Eos # (Auto) 0.0 Baso # (Auto) 0.0 Neutrophils % (Manual) 87 H Lymphocytes % (Manual) 9 L Monocytes % (Manual) 4 Platelet Estimate Slightly increased H Large Platelets Present Poikilocytosis (manual Slight Anisocytosis (manual) Slight Macrocytosis (manual) Slight Ovalocytes Moderate PT INR APTT pO2 VBG pH VBG pCO2 VBG HCO3 VBG Total CO2 VBG O2 Sat (Calc) VBG Base Excess VBG Potassium Sodium 139 Chloride 106 Glucose Lactate FiO2 Crit Value Called To Crit Value Called By Crit Value Read Back Blood Gas Notified Time Potassium 4.3 Carbon Dioxide 19 L Anion Gap 18 BUN 60 H Creatinine 1.2 Est GFR ( Amer) > 60 Est GFR (Non-Af Amer) > 60 Random Glucose 160 H Calcium 9.2 Phosphorus 3.8 Magnesium 2.0 Total Bilirubin 0.4 AST 22 ALT 30 Alkaline Phosphatase 81 Troponin I < 0.0120 Total Protein 6.2 L Albumin 3.2 L Globulin 3.1 Albumin/Globulin Ratio 1.0 Lipase 326 H Venous Blood Potassium Stool Occult Blood Positive H Blood Type Blood Type Confirm Antibody Screen Crossmatch BBK History Checked 01/31/19 23:46 WBC RBC Hgb Hct MCV MCH MCHC RDW Plt Count MPV Neut % (Auto) Lymph % (Auto) [place] % (Auto) Eos % (Auto) Baso % (Auto) Neut # (Auto) Lymph # (Auto) [place] # (Auto) Eos # (Auto) Baso # (Auto) Neutrophils % (Manual) Lymphocytes % (Manual) Monocytes % (Manual) Platelet Estimate Large Platelets Poikilocytosis (manual Anisocytosis (manual) Macrocytosis (manual) Ovalocytes PT 18.6 H INR 1.6 APTT 35.2 pO2 VBG pH VBG pCO2 VBG HCO3 VBG Total CO2 VBG O2 Sat (Calc) VBG Base Excess VBG Potassium Sodium Chloride Glucose Lactate FiO2 Crit Value Called To Crit Value Called By Crit Value Read Back Blood Gas Notified Time Potassium Carbon Dioxide Anion Gap BUN Creatinine Est GFR ( Amer) Est GFR (Non-Af Amer) Random Glucose Calcium Phosphorus Magnesium Total Bilirubin AST ALT Alkaline Phosphatase Troponin I Total Protein Albumin Globulin Albumin/Globulin Ratio Lipase Venous Blood Potassium Stool Occult Blood Blood Type Blood Type Confirm Antibody Screen Crossmatch BBK History Checked Assessment & Plan - Assessment and Plan (Free Text) Assessment: 68M with GI bleed Plan: - NPO - IVF - Patient needs repeat CBC - Continue to monitor vitals - Patient will require endoscopy once stabilized Discussed with Dr. Crystal Tolliver, PGY3 <Lucas Rojas - Last Filed: 02/01/19 20:55> Meds - Medications Medications: Current Medications Albuterol/Ipratropium (Duoneb 3 Mg/0.5 Mg (3 Ml) Ud) 3 ml INH RTID [facility] Last Admin: 02/01/19 20:38 Dose: 3 ml Guaifenesin/Dextromethorphan (Robitussin Dm) 10 ml PO Q4 PRN PRN Reason: Cough Last Admin: 02/01/19 20:08 Dose: 10 ml Sodium Chloride (Sodium Chloride 0.9%) 1,000 mls @ 125 mls/hr IV .Q8H [facility] Stop: 02/02/19 01:12 Last Admin: 02/01/19 01:40 Dose: 125 mls/hr Pantoprazole Sodium 40 mg/ (Sodium Chloride) 100 mls @ 20 mls/hr IVPB Q5H [facility] Last Admin: 02/01/19 14:08 Dose: 20 mls/hr Iron Sucrose 100 mg/ Sodium (Chloride) 105 mls @ 105 mls/hr IVPB DAILY [facility] Stop: 02/03/19 09:59 Last Admin: 02/01/19 14:06 Dose: 105 mls/hr Results - Vital Signs Recent Vital Signs: Last Vital Signs Temp 98.3 F 02/01/19 20:00 Pulse 71 02/01/19 20:38 Resp 15 02/01/19 20:00 BP 128/70 02/01/19 20:00 Pulse Ox 100 02/01/19 20:00 - Labs Result Diagrams: 02/01/19 11:55 02/01/19 11:55 Labs: Laboratory Results - last 24 hr 01/31/19 01/31/19 01/31/19 23:35 23:40 23:43 WBC RBC Hgb Hct MCV MCH MCHC RDW Plt Count MPV Neut % (Auto) Lymph % (Auto) [place] % (Auto) Eos % (Auto) Baso % (Auto) Neut # (Auto) Lymph # (Auto) [place] # (Auto) Eos # (Auto) Baso # (Auto) Neutrophils % (Manual) Lymphocytes % (Manual) Monocytes % (Manual) Platelet Estimate Large Platelets Poikilocytosis (manual Anisocytosis (manual) Macrocytosis (manual) Ovalocytes PT INR APTT pO2 12 L VBG pH 7.39 VBG pCO2 34 L VBG HCO3 19.8 VBG Total CO2 21.6 L VBG O2 Sat (Calc) 15.9 L VBG Base Excess -3.6 L VBG Potassium 4.6 Sodium 139.0 Chloride 109.0 H Glucose 168 H Lactate 4.5 H* FiO2 21.0 Crit Value Called To Dr charanjit mead Crit Value Called By Lalo Crit Value Read Back Y Blood Gas Notified Time 2346 Potassium Carbon Dioxide Anion Gap BUN Creatinine Est GFR ( Amer) Est GFR (Non-Af Amer) Random Glucose Hemoglobin A1c Lactic Acid Calcium Phosphorus Magnesium Total Bilirubin AST ALT Alkaline Phosphatase Troponin I Total Protein Albumin Globulin Albumin/Globulin Ratio Lipase Venous Blood Potassium 4.6 Stool Occult Blood Hepatitis A IgM Ab Hep Bs Antigen Hep B Core IgM Ab Hepatitis C Antibody Blood Type O POSITIVE Blood Type Confirm O POSITIVE Antibody Screen Negative Crossmatch See Detail BBK History Checked No verified bt 01/31/19 01/31/19 01/31/19 23:46 23:46 23:46 WBC 17.1 H D RBC 1.95 L Hgb 6.3 L* Hct 19.3 L MCV 99.0 H MCH 32.2 H MCHC 32.5 L RDW 13.8 Plt Count 466 H D MPV 7.5 Neut % (Auto) 87.5 H Lymph % (Auto) 6.6 L Starke % (Auto) 5.7 Eos % (Auto) 0.1 Baso % (Auto) 0.1 Neut # (Auto) 15.0 H Lymph # (Auto) 1.1 Starke # (Auto) 1.0 H Eos # (Auto) 0.0 Baso # (Auto) 0.0 Neutrophils % (Manual) 87 H Lymphocytes % (Manual) 9 L Monocytes % (Manual) 4 Platelet Estimate Slightly increased H Large Platelets Present Poikilocytosis (manual Slight Anisocytosis (manual) Slight Macrocytosis (manual) Slight Ovalocytes Moderate PT INR APTT pO2 VBG pH VBG pCO2 VBG HCO3 VBG Total CO2 VBG O2 Sat (Calc) VBG Base Excess VBG Potassium Sodium 139 Chloride 106 Glucose Lactate FiO2 Crit Value Called To Crit Value Called By Crit Value Read Back Blood Gas Notified Time Potassium 4.3 Carbon Dioxide 19 L Anion Gap 18 BUN 60 H Creatinine 1.2 Est GFR ( Amer) > 60 Est GFR (Non-Af Amer) > 60 Random Glucose 160 H Hemoglobin A1c Lactic Acid Calcium 9.2 Phosphorus 3.8 Magnesium 2.0 Total Bilirubin 0.4 AST 22 ALT 30 Alkaline Phosphatase 81 Troponin I < 0.0120 Total Protein 6.2 L Albumin 3.2 L Globulin 3.1 Albumin/Globulin Ratio 1.0 Lipase 326 H Venous Blood Potassium Stool Occult Blood Positive H Hepatitis A IgM Ab Hep Bs Antigen Hep B Core IgM Ab Hepatitis C Antibody Blood Type Blood Type Confirm Antibody Screen Crossmatch BBK History Checked 01/31/19 02/01/19 02/01/19 23:46 00:33 11:55 WBC 12.3 H RBC 2.36 L Hgb 7.3 L Hct 22.1 L MCV 93.5 D MCH 31.0 MCHC 33.1 RDW 15.2 H Plt Count 349 D MPV 7.7 Neut % (Auto) 77.2 H Lymph % (Auto) 14.8 L Starke % (Auto) 6.9 Eos % (Auto) 0.8 Baso % (Auto) 0.3 Neut # (Auto) 9.5 H Lymph # (Auto) 1.8 Starke # (Auto) 0.8 Eos # (Auto) 0.1 Baso # (Auto) 0.0 Neutrophils % (Manual) Lymphocytes % (Manual) Monocytes % (Manual) Platelet Estimate Large Platelets Poikilocytosis (manual Anisocytosis (manual) Macrocytosis (manual) Ovalocytes PT 18.6 H INR 1.6 APTT 35.2 pO2 VBG pH VBG pCO2 VBG HCO3 VBG Total CO2 VBG O2 Sat (Calc) VBG Base Excess VBG Potassium Sodium Chloride Glucose Lactate FiO2 Crit Value Called To Crit Value Called By Crit Value Read Back Blood Gas Notified Time Potassium Carbon Dioxide Anion Gap BUN Creatinine Est GFR ( Amer) Est GFR (Non-Af Amer) Random Glucose Hemoglobin A1c Lactic Acid Calcium Phosphorus Magnesium Total Bilirubin AST ALT Alkaline Phosphatase Troponin I Total Protein Albumin Globulin Albumin/Globulin Ratio Lipase Venous Blood Potassium Stool Occult Blood Hepatitis A IgM Ab Negative Hep Bs Antigen Negative Hep B Core IgM Ab Negative Hepatitis C Antibody Reactive Blood Type Blood Type Confirm Antibody Screen Crossmatch BBK History Checked 02/01/19 02/01/19 02/01/19 11:55 11:55 11:55 WBC RBC Hgb Hct MCV MCH MCHC RDW Plt Count MPV Neut % (Auto) Lymph % (Auto) [place] % (Auto) Eos % (Auto) Baso % (Auto) Neut # (Auto) Lymph # (Auto) [place] # (Auto) Eos # (Auto) Baso # (Auto) Neutrophils % (Manual) Lymphocytes % (Manual) Monocytes % (Manual) Platelet Estimate Large Platelets Poikilocytosis (manual Anisocytosis (manual) Macrocytosis (manual) Ovalocytes PT INR APTT pO2 VBG pH VBG pCO2 VBG HCO3 VBG Total CO2 VBG O2 Sat (Calc) VBG Base Excess VBG Potassium Sodium 140 Chloride 111 H Glucose Lactate FiO2 Crit Value Called To Crit Value Called By Crit Value Read Back Blood Gas Notified Time Potassium 4.2 Carbon Dioxide 25 Anion Gap 8 L BUN 40 H Creatinine 1.1 Est GFR ( Amer) > 60 Est GFR (Non-Af Amer) > 60 Random Glucose 102 Hemoglobin A1c 5.2 Lactic Acid 0.9 Calcium 8.7 Phosphorus Magnesium Total Bilirubin AST ALT Alkaline Phosphatase Troponin I Total Protein Albumin Globulin Albumin/Globulin Ratio Lipase Venous Blood Potassium Stool Occult Blood Hepatitis A IgM Ab Hep Bs Antigen Hep B Core IgM Ab Hepatitis C Antibody Blood Type Blood Type Confirm Antibody Screen Crossmatch BBK History Checked Assessment & Plan - Assessment and Plan (Free Text) Plan: Patient seen and evaluated by me. No further bleeding since yestterday . Upper endoscopy Friday
[2019-02-01 12:18] LABS: BASO % 0.3 % (0.0-2.0); EOS # 0.1 K/uL (0.0-0.7); EOS % 0.8 % (0.0-4.0); HEMOGLOBIN 7.3 g/dL (12.0-18.0); LYMPH # 1.8 K/uL (1.0-4.3); LYMPH % 14.8 % (20.0-40.0); MEAN CELL VOLUME 93.5 fl (80.0-94.0); MEAN CORPUSCULAR HGB CONC 33.1 g/dL (33.0-37.0); MEAN PLATELET VOLUME 7.7 fl (7.2-11.7); MONO # 0.8 K/uL (0.0-0.8); MONO % 6.9 % (0.0-10.0); NEUT # 9.5 K/uL (1.8-7.0); NEUT % 77.2 % (50.0-75.0); NRBC % 0.1 % (0.0-0.0); RBC 2.36 Mil/uL (4.40-5.90); RED CELL DISTRIBUTION WIDTH 15.2 % (11.5-14.5); WHITE BLOOD COUNT 12.3 K/uL (4.8-10.8)
[2019-02-01 12:42] LABS: BLOOD UREA NITROGEN 40 mg/dl (9-20); CALCIUM 8.7 mg/dL (8.4-10.2); GFR NON-AFRICAN AMERICAN > 60
[2019-02-01 13:52] LABS: HEPATITIS B SURFACE AG Negative (NEGATIVE)
[2019-02-01 13:58] LABS: HEPATITIS A IGM NEGATIVE (NEGATIVE); HEPATITIS B CORE AB NEGATIVE (NEGATIVE)
[2019-02-01 15:51] LABS: HEPATITIS C ANTIBODY REACTIVE (NEGATIVE)
[2019-02-01] MEDS ORDERED: guaiFENesin DM 200 mg-20 mg/10 ml UD PO PRN (18:02)
[2019-02-01] MEDS: Albuterol-Ipratrop 3 mg / 0.5 (3 ml) UD INH SCH (20:38)
[2019-02-02] MEDS: Sodium Chloride 0.9% 1,000 ML IV SCH ×2 (00:56→08:44)
[2019-02-02] MEDS: Pantoprazole 40 MG in Sodium Chloride 0.9% 100 ML IVPB SCH ×2 (02:24→08:42)
[2019-02-02 05:18] LABS: HEMOGLOBIN 7.9 g/dL (12.0-18.0); MEAN CORPUSCULAR HEMOGLOBIN 31.4 pg (27.0-31.0); MEAN CORPUSCULAR HGB CONC 33.7 g/dL (33.0-37.0); RBC 2.52 Mil/uL (4.40-5.90); RED CELL DISTRIBUTION WIDTH 15.1 % (11.5-14.5); WHITE BLOOD COUNT 9.5 K/uL (4.8-10.8)
[2019-02-02 05:39] LABS: BLOOD UREA NITROGEN 22 mg/dl (9-20); CALCIUM 8.8 mg/dL (8.4-10.2); GFR NON-AFRICAN AMERICAN > 60
[2019-02-02] MEDS: Albuterol-Ipratrop 3 mg / 0.5 (3 ml) UD INH SCH ×2 (07:07→13:17)
--- NOTE | 2019-02-02 08:01 | CP.CCUPN ---
CCU Subjective - Physician Review Events Since Last Encounter (Free Text): 02/02/19 08:02 The patient was Seen/interviewed and examined by me at the bedside, Medical records reviewed and Management issues were discussed and formulated with the house staff. Events reviewed 68 Years old Male with PMHx of HTN, Arthritis, Gout, Nephrolithiasis, Benign Prostatic Hyperplasia and Bleeding gastric ulcer requiring blood transfusion in 1960s Who resented to the Emergency department with complaint of black stool with no ferny blood and lightheadedness Patient also reports he was feeling lightheadedness and diaphoretic after his last bowel movement, and he fell to the ground. Of note patient recently had left knee surgery and he has been taking [id number] pain medication including Tylenol and Aleve for the arthritis and the knee pain Patient was admitted to see ICU for further management of presyncope in the setting of acute anemia from blood loss and for acute gastrointestinal bleeding likely upper GI Patient is feeling fine today, he received 2 units of blood transfusion yesterday Remains on Protonix drip Patient is n.p.o. scheduled for endoscopy this morning This morning hemoglobin is 7.9 and will transfuse 1 more unit of blood transfusion CCU Objective - Vital Signs / Intake & Output Vital Signs (Last 4 hours): Vital Signs Temp Pulse Resp BP Pulse Ox 02/02/19 06:00 77 17 124/75 96 02/02/19 04:00 98.3 F 82 19 128/83 97 Intake and Output (Last 8hrs): Intake & Output 02/01/19 02/02/19 02/02/19 22:59 06:59 14:59 Intake Total 1275 730 Output Total 1150 580 Balance 125 150 Weight 192 lb Intake: IV 190 730 Oral 750 Blood Product 325 Red Blood Cells Cpd As1 325 Lr Unit [id number] Other 10 Red Blood Cells Cpd As1 10 Lr Unit [id number] Output: Urine 1150 580 Urine, Voided 1150 580 - Medications Active Medications: Active Medications Generic Name Dose Route Start Last Admin Trade Name Freq PRN Reason Stop Dose Admin Albuterol/Ipratropium 3 ml 02/01/19 20:00 02/02/19 07:07 Duoneb 3 Mg/0.5 Mg (3 Ml) Ud INH 3 ml RTID [facility] Administration Guaifenesin/Dextromethorphan 10 ml 02/01/19 18:02 02/01/19 20:08 Robitussin Dm PO 10 ml Q4 PRN Administration Cough Pantoprazole Sodium 40 mg/ 100 mls @ 20 mls/hr 02/01/19 09:15 02/02/19 02:24 Sodium Chloride IVPB 20 mls/hr Q5H [facility] Administration 8 MG/HR Iron Sucrose 100 mg/ Sodium 105 mls @ 105 mls/hr 02/01/19 13:15 02/01/19 14:06 Chloride IVPB 02/03/19 09:59 105 mls/hr DAILY [facility] Administration Sodium Chloride 1,000 mls @ 125 mls/hr 02/02/19 00:45 02/02/19 00:56 Sodium Chloride 0.9% IV 02/03/19 12:00 125 mls/hr .Q8H [facility] Administration - Patient Studies Lab Studies: Microbiology Studies 01/31/19 02:45 Blood Culture - Preliminary Blood-Venous NO GROWTH AFTER 24 HOURS Lab Studies 02/02/19 02/02/19 02/01/19 Range/Units 04:15 04:15 11:55 WBC 9.5 (4.8-10.8) K/uL RBC 2.52 L (4.40-5.90) Mil/uL Hgb 7.9 L (12.0-18.0) g/dL Hct 23.5 L (35.0-51.0) % MCV 93.0 (80.0-94.0) fl MCH 31.4 H (27.0-31.0) pg MCHC 33.7 (33.0-37.0) g/dL RDW 15.1 H (11.5-14.5) % Plt Count 303 (130-400) K/uL MPV (7.2-11.7) fl Neut % (Auto) (50.0-75.0) % Lymph % (Auto) (20.0-40.0) % [place] % (Auto) (0.0-10.0) % Eos % (Auto) (0.0-4.0) % Baso % (Auto) (0.0-2.0) % Neut # (Auto) (1.8-7.0) K/uL Lymph # (Auto) (1.0-4.3) K/uL [place] # (Auto) (0.0-0.8) K/uL Eos # (Auto) (0.0-0.7) K/uL Baso # (Auto) (0.0-0.2) K/uL Sodium 139 (132-148) mmol/l Potassium 4.0 (3.6-5.0) MMOL/L Chloride 110 H (98-107) mmol/L Carbon Dioxide 24 (22-30) mmol/L Anion Gap 9 L (10-20) BUN 22 H (9-20) mg/dl Creatinine 1.1 (0.8-1.5) mg/dl Est GFR ( Amer) > 60 Est GFR (Non-Af Amer) > 60 Random Glucose 102 (75-110) mg/dL Hemoglobin A1c (4.2-6.5) % Lactic Acid 0.9 (0.7-2.1) mmol/L Calcium 8.8 (8.4-10.2) mg/dL Hepatitis A IgM Ab (NEGATIVE) Hep Bs Antigen (NEGATIVE) Hep B Core IgM Ab (NEGATIVE) Hepatitis C Antibody (NEGATIVE) Blood Type Antibody Screen Crossmatch BBK History Checked 02/01/19 02/01/19 02/01/19 Range/Units 11:55 11:55 11:55 WBC 12.3 H (4.8-10.8) K/uL RBC 2.36 L (4.40-5.90) Mil/uL Hgb 7.3 L (12.0-18.0) g/dL Hct 22.1 L (35.0-51.0) % MCV 93.5 D (80.0-94.0) fl MCH 31.0 (27.0-31.0) pg MCHC 33.1 (33.0-37.0) g/dL RDW 15.2 H (11.5-14.5) % Plt Count 349 D (130-400) K/uL MPV 7.7 (7.2-11.7) fl Neut % (Auto) 77.2 H (50.0-75.0) % Lymph % (Auto) 14.8 L (20.0-40.0) % [place] % (Auto) 6.9 (0.0-10.0) % Eos % (Auto) 0.8 (0.0-4.0) % Baso % (Auto) 0.3 (0.0-2.0) % Neut # (Auto) 9.5 H (1.8-7.0) K/uL Lymph # (Auto) 1.8 (1.0-4.3) K/uL [place] # (Auto) 0.8 (0.0-0.8) K/uL Eos # (Auto) 0.1 (0.0-0.7) K/uL Baso # (Auto) 0.0 (0.0-0.2) K/uL Sodium 140 (132-148) mmol/l Potassium 4.2 (3.6-5.0) MMOL/L Chloride 111 H (98-107) mmol/L Carbon Dioxide 25 (22-30) mmol/L Anion Gap 8 L (10-20) BUN 40 H (9-20) mg/dl Creatinine 1.1 (0.8-1.5) mg/dl Est GFR ( Amer) > 60 Est GFR (Non-Af Amer) > 60 Random Glucose 102 (75-110) mg/dL Hemoglobin A1c 5.2 (4.2-6.5) % Lactic Acid (0.7-2.1) mmol/L Calcium 8.7 (8.4-10.2) mg/dL Hepatitis A IgM Ab (NEGATIVE) Hep Bs Antigen (NEGATIVE) Hep B Core IgM Ab (NEGATIVE) Hepatitis C Antibody (NEGATIVE) Blood Type Antibody Screen Crossmatch BBK History Checked 02/01/19 01/31/19 Range/Units 00:33 23:35 WBC (4.8-10.8) K/uL RBC (4.40-5.90) Mil/uL Hgb (12.0-18.0) g/dL Hct (35.0-51.0) % MCV (80.0-94.0) fl MCH (27.0-31.0) pg MCHC (33.0-37.0) g/dL RDW (11.5-14.5) % Plt Count (130-400) K/uL MPV (7.2-11.7) fl Neut % (Auto) (50.0-75.0) % Lymph % (Auto) (20.0-40.0) % [place] % (Auto) (0.0-10.0) % Eos % (Auto) (0.0-4.0) % Baso % (Auto) (0.0-2.0) % Neut # (Auto) (1.8-7.0) K/uL Lymph # (Auto) (1.0-4.3) K/uL [place] # (Auto) (0.0-0.8) K/uL Eos # (Auto) (0.0-0.7) K/uL Baso # (Auto) (0.0-0.2) K/uL Sodium (132-148) mmol/l Potassium (3.6-5.0) MMOL/L Chloride (98-107) mmol/L Carbon Dioxide (22-30) mmol/L Anion Gap (10-20) BUN (9-20) mg/dl Creatinine (0.8-1.5) mg/dl Est GFR ( Amer) Est GFR (Non-Af Amer) Random Glucose (75-110) mg/dL Hemoglobin A1c (4.2-6.5) % Lactic Acid (0.7-2.1) mmol/L Calcium (8.4-10.2) mg/dL Hepatitis A IgM Ab Negative (NEGATIVE) Hep Bs Antigen Negative (NEGATIVE) Hep B Core IgM Ab Negative (NEGATIVE) Hepatitis C Antibody Reactive (NEGATIVE) Blood Type O POSITIVE Antibody Screen Negative Crossmatch See Detail BBK History Checked No verified bt Laboratory Results - last 24 hr 01/31/19 02/01/19 02/01/19 23:35 00:33 11:55 WBC 12.3 H RBC 2.36 L Hgb 7.3 L Hct 22.1 L MCV 93.5 D MCH 31.0 MCHC 33.1 RDW 15.2 H Plt Count 349 D MPV 7.7 Neut % (Auto) 77.2 H Lymph % (Auto) 14.8 L [place] % (Auto) 6.9 Eos % (Auto) 0.8 Baso % (Auto) 0.3 Neut # (Auto) 9.5 H Lymph # (Auto) 1.8 [place] # (Auto) 0.8 Eos # (Auto) 0.1 Baso # (Auto) 0.0 Sodium Potassium Chloride Carbon Dioxide Anion Gap BUN Creatinine Est GFR ( Amer) Est GFR (Non-Af Amer) Random Glucose Hemoglobin A1c Lactic Acid Calcium Hepatitis A IgM Ab Negative Hep Bs Antigen Negative Hep B Core IgM Ab Negative Hepatitis C Antibody Reactive Blood Type O POSITIVE Antibody Screen Negative Crossmatch See Detail BBK History Checked No verified bt 02/01/19 02/01/19 02/01/19 11:55 11:55 11:55 WBC RBC Hgb Hct MCV MCH MCHC RDW Plt Count MPV Neut % (Auto) Lymph % (Auto) [place] % (Auto) Eos % (Auto) Baso % (Auto) Neut # (Auto) Lymph # (Auto) [place] # (Auto) Eos # (Auto) Baso # (Auto) Sodium 140 Potassium 4.2 Chloride 111 H Carbon Dioxide 25 Anion Gap 8 L BUN 40 H Creatinine 1.1 Est GFR ( Amer) > 60 Est GFR (Non-Af Amer) > 60 Random Glucose 102 Hemoglobin A1c 5.2 Lactic Acid 0.9 Calcium 8.7 Hepatitis A IgM Ab Hep Bs Antigen Hep B Core IgM Ab Hepatitis C Antibody Blood Type Antibody Screen Crossmatch BBK History Checked 02/02/19 02/02/19 04:15 04:15 WBC 9.5 RBC 2.52 L Hgb 7.9 L Hct 23.5 L MCV 93.0 MCH 31.4 H MCHC 33.7 RDW 15.1 H Plt Count 303 MPV Neut % (Auto) Lymph % (Auto) [place] % (Auto) Eos % (Auto) Baso % (Auto) Neut # (Auto) Lymph # (Auto) [place] # (Auto) Eos # (Auto) Baso # (Auto) Sodium 139 Potassium 4.0 Chloride 110 H Carbon Dioxide 24 Anion Gap 9 L BUN 22 H Creatinine 1.1 Est GFR ( Amer) > 60 Est GFR (Non-Af Amer) > 60 Random Glucose 102 Hemoglobin A1c Lactic Acid Calcium 8.8 Hepatitis A IgM Ab Hep Bs Antigen Hep B Core IgM Ab Hepatitis C Antibody Blood Type Antibody Screen Crossmatch BBK History Checked Radiology Impressions: Radiology Impressions Chest X-Ray 01/31/19 23:06 IMPRESSION: No acute cardiopulmonary disease appreciated. Review of Systems - Cardiovascular Cardiovascular: absent: Chest Pain, Chest Pain at Rest, Chest Pain with Activity, Claudication, Diaphoresis - Respiratory Respiratory: absent: Cough, Dyspnea, Hemoptysis, Dyspnea on Exertion, Wheezing, Snoring, Change in Mucous Color - Gastrointestinal Gastrointestinal: Abdominal Pain, Belching, Bloating, Change in Stool Character. absent: Change in Bowel Habits Critical Care Progress Note - Extremities/Vascular Does the Patient have a Central Venous Catheter?: No Does the Patient need a Central Venous Catheter?: No Does the Patient have a Mitchell Catheter?: No Does the Patient need a Mitchell Catheter?: No - Nutrition Nutrition: Nutrition Category Date Time Status NPO Diet [DIET] Diets 02/02/19 Breakfast Active Assessment/Plan (1) GI bleed Current Visit: Yes Status: Acute Priority: High (2) Anemia Current Visit: Yes Status: Acute Priority: High (3) Syncope Current Visit: Yes Status: Acute Priority: High - Assessment and Plan (Free Text) Assessment: Patient is status post 2 units of blood transfusion Repeat hemoglobin this morning went up from 7.3/22.1 to 7.9/23.5 Two large bore peripheral catheters Suplemental O2 Planning to continue NPO Continue IV hydration GI consult appreciated, Patient scheduled for endoscopy in the morning CBC every 8 hours Continue home medications including Iron supplementation, Holding antihypertensives Continue Protonix drip Active type and screen sent yesterday Transfuse one more unit packed RBC
[2019-02-02] MEDS ORDERED: Pneumococcal 23-Valent Vaccine IM ONE (08:09)
[2019-02-02] MEDS ORDERED: Lactated Ringer's 500 ML IV ONE (08:48)
[2019-02-02] MEDS ORDERED: Etomidate 20 mg/10ml Inj IV ONE (09:04)
[2019-02-02] MEDS ORDERED: Propofol 10 mg/ml Inj (20 ML) ONE (09:04)
[2019-02-02] MEDS ORDERED: Lactated Ringer's 1,000 ML IV SCH (09:35)
[2019-02-02] MEDS: Pantoprazole 40 mg EC Tab PO SCH ×2 (11:28→16:39)
--- NOTE | 2019-02-02 14:25 | CP.PCM.DIS ---
<Basilia Serra - Last Filed: 02/02/19 14:34> Provider - Provider Date of Admission: 02/01/19 00:03 Attending physician: Anoop Palacios Consults: 02/01/19 00:08 Gastroenterology Consult Stat Comment: Consulting Provider: Lucas Rojas Consulting Physician: Lucas Rojas Reason for Consult: GI bleed 02/01/19 02:19 Wound Care [Nursing Referral for Wound Care] Routine Comment: Left TKR done 01/18/19 Physician Instructions: Reason For Exam: Left Knee surgical wound Time Spent in preparation of Discharge (in minutes): 20 Hospital Course - Lab Results Lab Results: Micro Results 01/31/19 02:45 Blood-Venous Blood Culture - Preliminary NO GROWTH AFTER 24 HOURS Most Recent Lab Values WBC 9.5 K/uL (4.8-10.8) 02/02/19 04:15 RBC 2.52 Mil/uL (4.40-5.90) L 02/02/19 04:15 Hgb 7.9 g/dL (12.0-18.0) L 02/02/19 04:15 Hct 23.5 % (35.0-51.0) L 02/02/19 04:15 MCV 93.0 fl (80.0-94.0) 02/02/19 04:15 MCH 31.4 pg (27.0-31.0) H 02/02/19 04:15 MCHC 33.7 g/dL (33.0-37.0) 02/02/19 04:15 RDW 15.1 % (11.5-14.5) H 02/02/19 04:15 Plt Count 303 K/uL (130-400) 02/02/19 04:15 MPV 7.7 fl (7.2-11.7) 02/01/19 11:55 Neut % (Auto) 77.2 % (50.0-75.0) H 02/01/19 11:55 Lymph % (Auto) 14.8 % (20.0-40.0) L 02/01/19 11:55 [place] % (Auto) 6.9 % (0.0-10.0) 02/01/19 11:55 Eos % (Auto) 0.8 % (0.0-4.0) 02/01/19 11:55 Baso % (Auto) 0.3 % (0.0-2.0) 02/01/19 11:55 Neut # (Auto) 9.5 K/uL (1.8-7.0) H 02/01/19 11:55 Lymph # (Auto) 1.8 K/uL (1.0-4.3) 02/01/19 11:55 [place] # (Auto) 0.8 K/uL (0.0-0.8) 02/01/19 11:55 Eos # (Auto) 0.1 K/uL (0.0-0.7) 02/01/19 11:55 Baso # (Auto) 0.0 K/uL (0.0-0.2) 02/01/19 11:55 Neutrophils % (Manual) 87 % (42-75) H 01/31/19 23:46 Lymphocytes % (Manual) 9 % (20-50) L 01/31/19 23:46 Monocytes % (Manual) 4 % (0-10) 01/31/19 23:46 Platelet Estimate Slightly increased (NORMAL) H 01/31/19 23:46 Large Platelets Present 01/31/19 23:46 Poikilocytosis (manual Slight 01/31/19 23:46 Anisocytosis (manual) Slight 01/31/19 23:46 Macrocytosis (manual) Slight 01/31/19 23:46 Ovalocytes Moderate 01/31/19 23:46 PT 18.6 Seconds (9.8-13.1) H 01/31/19 23:46 INR 1.6 01/31/19 23:46 APTT 35.2 Seconds (25.6-37.1) 01/31/19 23:46 pO2 12 mm/Hg (30-55) L 01/31/19 23:43 VBG pH 7.39 (7.32-7.43) 01/31/19 23:43 VBG pCO2 34 mmHg (40-60) L 01/31/19 23:43 VBG HCO3 19.8 mmol/L 01/31/19 23:43 VBG Total CO2 21.6 mmol/L (22-28) L 01/31/19 23:43 VBG O2 Sat (Calc) 15.9 % (40-65) L 01/31/19 23:43 VBG Base Excess -3.6 mmol/L (0.0-2.0) L 01/31/19 23:43 VBG Potassium 4.6 mmol/L (3.6-5.2) 01/31/19 23:43 Sodium 139.0 mmol/L (132-148) 01/31/19 23:43 Chloride 109.0 mmol/L (98-107) H 01/31/19 23:43 Glucose 168 mg/dL (75-110) H 01/31/19 23:43 Lactate 4.5 mmol/L (0.7-2.1) H* 01/31/19 23:43 FiO2 21.0 % 01/31/19 23:43 Crit Value Called To Dr charanjit mead 01/31/19 23:43 Crit Value Called By Lalo 01/31/19 23:43 Crit Value Read Back Y 01/31/19 23:43 Blood Gas Notified Time 4727 01/31/19 23:43 Sodium 139 mmol/l (132-148) 02/02/19 04:15 Potassium 4.0 MMOL/L (3.6-5.0) 02/02/19 04:15 Chloride 110 mmol/L (98-107) H 02/02/19 04:15 Carbon Dioxide 24 mmol/L (22-30) 02/02/19 04:15 Anion Gap 9 (10-20) L 02/02/19 04:15 BUN 22 mg/dl (9-20) H 02/02/19 04:15 Creatinine 1.1 mg/dl (0.8-1.5) 02/02/19 04:15 Est GFR ( Amer) > 60 02/02/19 04:15 Est GFR (Non-Af Amer) > 60 02/02/19 04:15 Random Glucose 102 mg/dL (75-110) 02/02/19 04:15 Hemoglobin A1c 5.2 % (4.2-6.5) 02/01/19 11:55 Lactic Acid 0.9 mmol/L (0.7-2.1) 02/01/19 11:55 Calcium 8.8 mg/dL (8.4-10.2) 02/02/19 04:15 Phosphorus 3.8 mg/dl (2.5-4.5) 01/31/19 23:46 Magnesium 2.0 MG/DL (1.6-2.3) 01/31/19 23:46 Total Bilirubin 0.4 mg/dl (0.2-1.3) 01/31/19 23:46 AST 22 U/L (17-59) 01/31/19 23:46 ALT 30 U/L (21-72) 01/31/19 23:46 Alkaline Phosphatase 81 U/L (38-126) 01/31/19 23:46 Troponin I < 0.0120 ng/mL (0.00-0.120) 01/31/19 23:46 Total Protein 6.2 G/DL (6.3-8.2) L 01/31/19 23:46 Albumin 3.2 g/dL (3.5-5.0) L 01/31/19 23:46 Globulin 3.1 gm/dL (2.2-3.9) 01/31/19 23:46 Albumin/Globulin Ratio 1.0 (1.0-2.1) 01/31/19 23:46 Lipase 326 U/L (23-300) H 01/31/19 23:46 Venous Blood Potassium 4.6 mmol/L (3.6-5.2) 01/31/19 23:43 Stool Occult Blood Positive (NEGATIVE) H 01/31/19 23:46 Hepatitis A IgM Ab Negative (NEGATIVE) 02/01/19 00:33 Hep Bs Antigen Negative (NEGATIVE) 02/01/19 00:33 Hep B Core IgM Ab Negative (NEGATIVE) 02/01/19 00:33 Hepatitis C Antibody Reactive (NEGATIVE) 02/01/19 00:33 Blood Type O POSITIVE 01/31/19 23:35 Blood Type Confirm O POSITIVE 01/31/19 23:40 Antibody Screen Negative 01/31/19 23:35 Crossmatch See Detail 01/31/19 23:35 BBK History Checked No verified bt 01/31/19 23:35 - Hospital Course Hospital Course: 68-year-old male presented to [facility] ED for a near-syncopal episode. His Hg/Hct was found to be 6.3/19.3 with HR in low 100's and he admitted to black, bloody stool. Pt was transfused a total of 4 units PRBC and his H/H remained stable. GI performed an endoscopy of which gastritis was diagnosed. Of note, pt had TLKR 2 weeks prior and states he was given PO iron on discharge and required a transfusion post-op. [place] [facility] [place] ([phone]) and agreed via telephone encounter to discontinue post-op DVT prophylaxis prescribed due to GI bleed. Follow up with Dr Fam is on , 2 days from discharge, for suture removal. Patient was also found to be Hepatitis C positive, will follow-up outpatient. Recommended to ambulate, use compression stockings and avoid any NSAID and blood thinner and follow-up with PCP (Tristen Love) within 1 week and GI within 1 weeks (biopsy results). Discharge Exam - Head Exam Head Exam: ATRAUMATIC, NORMAL INSPECTION, NORMOCEPHALIC - Eye Exam Eye Exam: Normal appearance - ENT Exam ENT Exam: Mucous Membranes Moist - Respiratory Exam Respiratory Exam: NORMAL BREATHING PATTERN. absent: Respiratory Distress - Cardiovascular Exam Cardiovascular Exam: +S1, +S2 - GI/Abdominal Exam GI & Abdominal Exam: Soft. absent: Firm, Guarding, Rebound, Tenderness - Extremities Exam Additional comments: sutures remain intact on left knee, clean and dry - Neurological Exam Neurological exam: Alert, Oriented x3 - Psychiatric Exam Psychiatric exam: Normal Affect, Normal Mood - Skin Skin Exam: Dry, Intact, Warm Discharge Plan - Discharge Medications Prescriptions: Pantoprazole Sodium [Protonix] 40 mg PO BID #60 tablet.dr - Follow Up Plan Condition: CRITICAL Disposition: HOME/ ROUTINE Instructions: Syncope (DC), Syncope (GEN) Additional Instructions: follow-up with PMD within [address] Rojas in 1 wk NO ASPIRIN, NO NSAIDS, NO CELEBREX Ambulate , TEDS stockings Referrals: Lucas Rojas MD [Staff Provider] - <Alisha Virk - Last Filed: 02/02/19 18:07> Provider - Provider Date of Admission: 02/01/19 00:03 Attending physician: Anoop Palacios Consults: 02/01/19 00:08 Gastroenterology Consult Stat Comment: Consulting Provider: Lucas Rojas Consulting Physician: Lucas Rojas Reason for Consult: GI bleed 02/01/19 02:19 Wound Care [Nursing Referral for Wound Care] Routine Comment: Left TKR done 01/18/19 Physician Instructions: Reason For Exam: Left Knee surgical wound Hospital Course - Lab Results Lab Results: Micro Results 01/31/19 02:45 Blood-Venous Blood Culture - Preliminary NO GROWTH AFTER 24 HOURS Most Recent Lab Values WBC 9.5 K/uL (4.8-10.8) 02/02/19 04:15 RBC 2.52 Mil/uL (4.40-5.90) L 02/02/19 04:15 Hgb 7.9 g/dL (12.0-18.0) L 02/02/19 04:15 Hct 23.5 % (35.0-51.0) L 02/02/19 04:15 MCV 93.0 fl (80.0-94.0) 02/02/19 04:15 MCH 31.4 pg (27.0-31.0) H 02/02/19 04:15 MCHC 33.7 g/dL (33.0-37.0) 02/02/19 04:15 RDW 15.1 % (11.5-14.5) H 02/02/19 04:15 Plt Count 303 K/uL (130-400) 02/02/19 04:15 MPV 7.7 fl (7.2-11.7) 02/01/19 11:55 Neut % (Auto) 77.2 % (50.0-75.0) H 02/01/19 11:55 Lymph % (Auto) 14.8 % (20.0-40.0) L 02/01/19 11:55 [place] % (Auto) 6.9 % (0.0-10.0) 02/01/19 11:55 Eos % (Auto) 0.8 % (0.0-4.0) 02/01/19 11:55 Baso % (Auto) 0.3 % (0.0-2.0) 02/01/19 11:55 Neut # (Auto) 9.5 K/uL (1.8-7.0) H 02/01/19 11:55 Lymph # (Auto) 1.8 K/uL (1.0-4.3) 02/01/19 11:55 [place] # (Auto) 0.8 K/uL (0.0-0.8) 02/01/19 11:55 Eos # (Auto) 0.1 K/uL (0.0-0.7) 02/01/19 11:55 Baso # (Auto) 0.0 K/uL (0.0-0.2) 02/01/19 11:55 Neutrophils % (Manual) 87 % (42-75) H 01/31/19 23:46 Lymphocytes % (Manual) 9 % (20-50) L 01/31/19 23:46 Monocytes % (Manual) 4 % (0-10) 01/31/19 23:46 Platelet Estimate Slightly increased (NORMAL) H 01/31/19 23:46 Large Platelets Present 01/31/19 23:46 Poikilocytosis (manual Slight 01/31/19 23:46 Anisocytosis (manual) Slight 01/31/19 23:46 Macrocytosis (manual) Slight 01/31/19 23:46 Ovalocytes Moderate 01/31/19 23:46 PT 18.6 Seconds (9.8-13.1) H 01/31/19 23:46 INR 1.6 01/31/19 23:46 APTT 35.2 Seconds (25.6-37.1) 01/31/19 23:46 pO2 12 mm/Hg (30-55) L 01/31/19 23:43 VBG pH 7.39 (7.32-7.43) 01/31/19 23:43 VBG pCO2 34 mmHg (40-60) L 01/31/19 23:43 VBG HCO3 19.8 mmol/L 01/31/19 23:43 VBG Total CO2 21.6 mmol/L (22-28) L 01/31/19 23:43 VBG O2 Sat (Calc) 15.9 % (40-65) L 01/31/19 23:43 VBG Base Excess -3.6 mmol/L (0.0-2.0) L 01/31/19 23:43 VBG Potassium 4.6 mmol/L (3.6-5.2) 01/31/19 23:43 Sodium 139.0 mmol/L (132-148) 01/31/19 23:43 Chloride 109.0 mmol/L (98-107) H 01/31/19 23:43 Glucose 168 mg/dL (75-110) H 01/31/19 23:43 Lactate 4.5 mmol/L (0.7-2.1) H* 01/31/19 23:43 FiO2 21.0 % 01/31/19 23:43 Crit Value Called To Dr charanjit mead 01/31/19 23:43 Crit Value Called By Lalo 01/31/19 23:43 Crit Value Read Back Y 01/31/19 23:43 Blood Gas Notified Time 234501/31/19 23:43 Sodium 139 mmol/l (132-148) 02/02/19 04:15 Potassium 4.0 MMOL/L (3.6-5.0) 02/02/19 04:15 Chloride 110 mmol/L (98-107) H 02/02/19 04:15 Carbon Dioxide 24 mmol/L (22-30) 02/02/19 04:15 Anion Gap 9 (10-20) L 02/02/19 04:15 BUN 22 mg/dl (9-20) H 02/02/19 04:15 Creatinine 1.1 mg/dl (0.8-1.5) 02/02/19 04:15 Est GFR ( Amer) > 60 02/02/19 04:15 Est GFR (Non-Af Amer) > 60 02/02/19 04:15 Random Glucose 102 mg/dL (75-110) 02/02/19 04:15 Hemoglobin A1c 5.2 % (4.2-6.5) 02/01/19 11:55 Lactic Acid 0.9 mmol/L (0.7-2.1) 02/01/19 11:55 Calcium 8.8 mg/dL (8.4-10.2) 02/02/19 04:15 Phosphorus 3.8 mg/dl (2.5-4.5) 01/31/19 23:46 Magnesium 2.0 MG/DL (1.6-2.3) 01/31/19 23:46 Total Bilirubin 0.4 mg/dl (0.2-1.3) 01/31/19 23:46 AST 22 U/L (17-59) 01/31/19 23:46 ALT 30 U/L (21-72) 01/31/19 23:46 Alkaline Phosphatase 81 U/L (38-126) 01/31/19 23:46 Troponin I < 0.0120 ng/mL (0.00-0.120) 01/31/19 23:46 Total Protein 6.2 G/DL (6.3-8.2) L 01/31/19 23:46 Albumin 3.2 g/dL (3.5-5.0) L 01/31/19 23:46 Globulin 3.1 gm/dL (2.2-3.9) 01/31/19 23:46 Albumin/Globulin Ratio 1.0 (1.0-2.1) 01/31/19 23:46 Lipase 326 U/L (23-300) H 01/31/19 23:46 Venous Blood Potassium 4.6 mmol/L (3.6-5.2) 01/31/19 23:43 Stool Occult Blood Positive (NEGATIVE) H 01/31/19 23:46 Hepatitis A IgM Ab Negative (NEGATIVE) 02/01/19 00:33 Hep Bs Antigen Negative (NEGATIVE) 02/01/19 00:33 Hep B Core IgM Ab Negative (NEGATIVE) 02/01/19 00:33 Hepatitis C Antibody Reactive (NEGATIVE) 02/01/19 00:33 Blood Type O POSITIVE 01/31/19 23:35 Blood Type Confirm O POSITIVE 01/31/19 23:40 Antibody Screen Negative 01/31/19 23:35 Crossmatch See Detail 01/31/19 23:35 BBK History Checked No verified bt 01/31/19 23:35 Attending/Attestation - Attestation I have personally seen and examined this patient.: Yes I have fully participated in the care of the patient.: Yes I have reviewed all pertinent clinical information, including history, physical exam and plan: Yes Notes (Text): Acute Symptomatic Blood Loss Anemia due to GI Bleed ( Hgb 6.3) Upper Gastrointestinal Bleeding prob due to Gastritis Presyncope due to Hypovolemia Leukocytosis likely reactive History of Recent Left TKR Hepatitis C -Hgb was 6.3 on admission, pt was transfused total of 4 units PRBC - he was on blood thinner post TKR for DVT proph and NSAIDS at home - Pt denieshead trauma, no LOC however was feeling very faint and dizzy while on the toilet and upon getting up almost fell but was able to brace himself and sitted himself on his right and his got him up. Denies left knee trauma. Pt was able ambulate to the bathroom while in ICU today - Pt was monitored closely in ICU - Protonix drip started - GI consulted- EGD done w/c only showed Gastritis , no active bleed. Pt cleared by Dr Rojas for discharge. - Pt unexpected improved after transfusion, no further GI bleeding, VS stable, tolerating PO diet, will d/c pt home - Pt has an appt to see his Ortho - Dr Fam notified of event - ff up with PMD rabia - return to ED if bleeding recurs - cont Protonix BID - ff up with Dr Rojas in 1 wk
[2019-02-02 15:03] VITALS: RESP 18
[2019-02-02 16:14] VITALS: BP 135/74; PULSE 95; TEMP 98.1; O2SAT 98
== END 2019-02-02 17:45 | disposition home or self-care (01) | DRG 378 ==
LOC: H.ER 22:47 → H.ERHOLD 02-01 00:03 → H.ICU/CCU 02-01 01:22
PROVIDERS: ADMIT Internal Medicine; ATTEND Internal Medicine
PROC: 30233N1 Transfusion of Nonautologous Red Blood Cells into Peripheral Vein, Percutaneous Approach (ICD-10-PCS; 2019-02-01)
PROC: 3E0234Z Introduction of Serum, Toxoid and Vaccine into Muscle, Percutaneous Approach (ICD-10-PCS; 2019-02-02)
PROC: 0DB68ZX Excision of Stomach, Via Natural or Artificial Opening Endoscopic, Diagnostic (ICD-10-PCS; principal; 2019-02-02 08:30)
DX: K29.71 Gastritis, unspecified, with bleeding (principal); D62 Acute posthemorrhagic anemia; Z96.652 Presence of left artificial knee joint; N40.0 Benign prostatic hyperplasia without lower urinary tract symptoms; K44.9 Diaphragmatic hernia without obstruction or gangrene; E86.1 Hypovolemia; M19.90 Unspecified osteoarthritis, unspecified site; Z87.891 Personal history of nicotine dependence; R73.9 Hyperglycemia, unspecified; B19.20 Unspecified viral hepatitis C without hepatic coma; I95.1 Orthostatic hypotension; R79.89 Other specified abnormal findings of blood chemistry; M10.9 Gout, unspecified; I12.9 Hypertensive chronic kidney disease with stage 1 through stage 4 chronic kidney disease, or unspecified chronic kidney disease; N18.9 Chronic kidney disease, unspecified; D72.829 Elevated white blood cell count, unspecified; Z23 Encounter for immunization